=== PATIENT | female | born 1935 | race Caucasian/White ===

== ENCOUNTER 2020-12-31 00:17 | Inpatient (IN) ==
[2020-12-31] MEDS ORDERED: Naloxone 0.4 MG/ML INJ IVP PRN (03:03)
[2020-12-31 05:50] LABS: Hematocrit 28.5 % (35.3-44.9); Hemoglobin 9.4 g/dL (11.5-15.4); Mean Corpuscular Hemoglobin 28.2 pg (28.0-33.3); Mean Corpuscular Volume 85.6 fL (83.0-100.0); Mean Platelet Volume 9.1 fL (9.4-12.4); Platelet Count 250 K/mcL (140-400); Red Blood Count 3.33 M/mcL (3.82-4.97); Red Cell Distribution Width 21.7 % (11.5-14.5); White Blood Count 9.7 K/mcL (4.3-11.1)
[2020-12-31 06:08] LABS: Activated Partial Thrombo Time 46.8 Seconds (26.0-36.0)
[2020-12-31 06:11] LABS: BUN/Creatinine Ratio 24 (6-26); Blood Urea Nitrogen 13 mg/dL (8-23); Calcium 8.4 mg/dL (8.6-10.3); Carbon Dioxide 20 mEq/L (23-29); Chloride 105 mEq/L (98-107); Glucose 137 mg/dL (70-105); Osmolality,Calculated 280 (280-300); Potassium 3.3 mEq/L (3.5-5.1); Prothrombin Time 55.6 Seconds (9.4-12.1); Sodium 134 mEq/L (136-145); eGFR For African Americans > 60 (> 60); eGFR For Non-African Americans > 60 (> 60)
[2020-12-31] MEDS ORDERED: *HR* Phytonadione 5 MG TABLET PO ONE (06:13)
[2020-12-31] MEDS: cefTRIAXone 1,000 MG in 0.9 % Sodium Chloride Mini Bag 100 ML IVPB SCH (08:14)
[2020-12-31] MEDS ORDERED: Potassium Chloride 20 MEQ, Lidocaine 1% 2 ML in 0.9 % Sodium Chloride 250 ML IVPB ONE (08:21)
[2020-12-31 09:33] LABS: Hematocrit 29.3 % (35.3-44.9); Hemoglobin 9.6 g/dL (11.5-15.4)
[2020-12-31] MEDS: Acetaminophen 325 MG TABLET PO PRN (14:01)
[2020-12-31 15:41] LABS: Hematocrit 29.1 % (35.3-44.9); Hemoglobin 9.6 g/dL (11.5-15.4)
[2020-12-31] MEDS: Famotidine 20 MG TABLET PO SCH (19:38)
[2020-12-31] MEDS: Metoprolol XL (24 HR) Succ 50 MG TAB.ER.24H PO SCH (19:38)
[2020-12-31] MEDS: Latanoprost 2.5 ML BOTTLE BOTH EYES SCH (19:39)
[2020-12-31 20:51] LABS: Hemoglobin 9.3 g/dL (11.5-15.4)
[2021-01-01 02:09] LABS: Hematocrit 28.1 % (35.3-44.9); Hemoglobin 9.4 g/dL (11.5-15.4); Mean Corpuscular HGB Conc 33.5 g/dL (31.6-35.5); Mean Corpuscular Hemoglobin 28.4 pg (28.0-33.3); Mean Corpuscular Volume 84.9 fL (83.0-100.0); Platelet Count 278 K/mcL (140-400); Red Blood Count 3.31 M/mcL (3.82-4.97); White Blood Count 9.9 K/mcL (4.3-11.1)
[2021-01-01 02:16] LABS: INR 2.8; Prothrombin Time 31.2 Seconds (9.4-12.1)
[2021-01-01 02:28] LABS: BUN/Creatinine Ratio 27 (6-26); Blood Urea Nitrogen 18 mg/dL (8-23); Calcium 8.2 mg/dL (8.6-10.3); Carbon Dioxide 19 mEq/L (23-29); Chloride 102 mEq/L (98-107); Glucose 194 mg/dL (70-105); Osmolality,Calculated 279 (280-300); Potassium 3.7 mEq/L (3.5-5.1); Sodium 131 mEq/L (136-145); eGFR For African Americans > 60 (> 60); eGFR For Non-African Americans > 60 (> 60)
[2021-01-01] MEDS: cefTRIAXone 1,000 MG in 0.9 % Sodium Chloride Mini Bag 100 ML IVPB SCH (07:59)
[2021-01-01] MEDS: Famotidine 20 MG TABLET PO SCH ×2 (08:00→22:28)
[2021-01-01] MEDS ORDERED: amLODIPine 5 MG TABLET PO SCH (09:00)
[2021-01-01] MEDS ORDERED: Metoprolol XL (24 HR) Succ 50 MG TAB.ER.24H PO SCH (09:00)
[2021-01-01] MEDS: Metoprolol XL (24 HR) Succ 50 MG TAB.ER.24H PO SCH (22:21)
[2021-01-01] MEDS: Latanoprost 2.5 ML BOTTLE BOTH EYES SCH (22:32)
[2021-01-02] MEDS ORDERED: 0.9 % Sodium Chloride 500 ML IVC ONE ×2 (03:49→06:59)
[2021-01-02 04:56] LABS: Hematocrit 24.3 % (35.3-44.9); Mean Corpuscular HGB Conc 31.7 g/dL (31.6-35.5); Mean Corpuscular Hemoglobin 27.6 pg (28.0-33.3); Mean Corpuscular Volume 87.1 fL (83.0-100.0); Mean Platelet Volume 9.5 fL (9.4-12.4); Platelet Count 251 K/mcL (140-400); Red Blood Count 2.79 M/mcL (3.82-4.97); Red Cell Distribution Width 21.8 % (11.5-14.5); White Blood Count 8.2 K/mcL (4.3-11.1)
[2021-01-02 04:57] LABS: Hemoglobin 7.7 g/dL (11.5-15.4)
[2021-01-02 05:11] LABS: Calcium 7.5 mg/dL (8.6-10.3)
[2021-01-02 05:23] LABS: INR 1.7; Prothrombin Time 19.3 Seconds (9.4-12.1)
[2021-01-02] MEDS: Famotidine 20 MG TABLET PO SCH (08:24)
[2021-01-02] MEDS: cefTRIAXone 1,000 MG in 0.9 % Sodium Chloride Mini Bag 100 ML IVPB SCH (09:02)
[2021-01-02 12:33] LABS: Hematocrit 24.9 % (35.3-44.9); Hemoglobin 8.2 g/dL (11.5-15.4)
[2021-01-02 12:52] LABS: Calcium 7.6 mg/dL (8.6-10.3)
[2021-01-02] MEDS: 0.9 % Sodium Chloride 1,000 ML IVC SCH (17:32)
[2021-01-02] MEDS: Metoprolol XL (24 HR) Succ 50 MG TAB.ER.24H PO SCH (20:32)
[2021-01-02] MEDS: Latanoprost 2.5 ML BOTTLE BOTH EYES SCH (20:33)
[2021-01-03 06:28] LABS: Hemoglobin 7.7 g/dL (11.5-15.4); Mean Corpuscular HGB Conc 32.1 g/dL (31.6-35.5); Mean Corpuscular Hemoglobin 27.7 pg (28.0-33.3); Mean Corpuscular Volume 86.3 fL (83.0-100.0); Mean Platelet Volume 8.9 fL (9.4-12.4); Platelet Count 292 K/mcL (140-400); Red Blood Count 2.78 M/mcL (3.82-4.97); Red Cell Distribution Width 21.6 % (11.5-14.5)
[2021-01-03 06:43] LABS: INR 1.7; Prothrombin Time 18.4 Seconds (9.4-12.1)
[2021-01-03 06:47] LABS: Calcium 7.6 mg/dL (8.6-10.3); Potassium 4.3 mEq/L (3.5-5.1)
[2021-01-03] MEDS ORDERED: 0.9 % Sodium Chloride 500 ML IVC ONE (07:51)
[2021-01-03 08:42] LABS: Hematocrit 24.6 % (35.3-44.9)
[2021-01-03] MEDS: Famotidine 20 MG TABLET PO SCH (09:17)
[2021-01-03] MEDS: cefTRIAXone 1,000 MG in 0.9 % Sodium Chloride Mini Bag 100 ML IVPB SCH (09:19)
[2021-01-03] MEDS ORDERED: Trolamine Salicylate/Aloe Vera 85 APPL/85 GM TUBE TP PRN (12:25)
[2021-01-03 15:58] LABS: Hemoglobin 8.6 g/dL (11.5-15.4)
[2021-01-03] MEDS: Metoprolol XL (24 HR) Succ 50 MG TAB.ER.24H PO SCH (19:49)
[2021-01-03] MEDS: Latanoprost 2.5 ML BOTTLE BOTH EYES SCH (23:52)
[2021-01-04] MEDS: 0.9 % Sodium Chloride 1,000 ML IVC SCH (07:32)
[2021-01-04 07:59] LABS: Hematocrit 24.8 % (35.3-44.9); Mean Corpuscular HGB Conc 32.3 g/dL (31.6-35.5); Mean Corpuscular Hemoglobin 27.6 pg (28.0-33.3); Mean Corpuscular Volume 85.5 fL (83.0-100.0); Mean Platelet Volume 9.3 fL (9.4-12.4); Platelet Count 373 K/mcL (140-400); Red Cell Distribution Width 21.4 % (11.5-14.5); White Blood Count 8.3 K/mcL (4.3-11.1)
[2021-01-04] MEDS: cefTRIAXone 1,000 MG in 0.9 % Sodium Chloride Mini Bag 100 ML IVPB SCH (08:09)
[2021-01-04] MEDS: Famotidine 20 MG TABLET PO SCH (08:10)
[2021-01-04] MEDS: amLODIPine 5 MG TABLET PO SCH (08:11)
[2021-01-04] MEDS: Metoprolol XL (24 HR) Succ 50 MG TAB.ER.24H PO SCH ×3 (08:11→20:19)
[2021-01-04 08:17] LABS: Calcium 8.1 mg/dL (8.6-10.3); Potassium 4.1 mEq/L (3.5-5.1)
[2021-01-04] MEDS: Acetaminophen 325 MG TABLET PO PRN ×2 (11:40→19:55)
[2021-01-04 12:15] LABS: Albumin 3.1 g/dL (3.5-5.7); Albumin/Globulin Ratio 0.9 (1.1-2.2); Bilirubin,Direct 0.4 mg/dL (0.0-0.2); Bilirubin,Indirect 0.6 mg/dL (0.0-1.0); Globulin 3.4 g/dL (2.4-3.5); Total Protein 6.5 g/dL (6.4-8.9)
[2021-01-04 12:35] LABS: Bacteria,Urine Few per hpf (None-Few); Bilirubin,Urine Negative (Negative); Blood,Urine Small (Negative); Budding Yeast,Urine Many per hpf (None Seen); Clarity,Urine Clear (Clear); Color,Urine Light-Yellow (Yellow); Glucose,Urine (UA) 100 mg/dL (Normal); Ketones,Urine Trace mg/dL (Negative); Leukocyte Esterase,Urine Trace (Negative); Mucus,Urine Few per lpf (None-Few); Nitrite,Urine Negative (Negative); PH,Urine 5.5 pH Units (5.0-8.0); Protein,Urine 50 mg/dL (Neg-Trace); Specific Gravity,Urine 1.014 (1.010-1.025); Squamous Epithelial Cell,Urine Few per hpf (None-Few); Transitional Epi Cells,Urine Few per hpf (None-Few); Urobilinogen,Urine Normal (Normal)
[2021-01-04 14:13] LABS: Adenovirus Not Detected (Not Detect); Bordetella Pertussis Not Detected (Not Detect); Chlamydophila pneumoniae Not Detected (Not Detect); Coronavirus 229E Not Detected (Not Detect); Coronavirus HKU1 Not Detected (Not Detect); Coronavirus NL63 Not Detected (Not Detect); Coronavirus OC43 Not Detected (Not Detect); Human Metapneumovirus Not Detected (Not Detect); Human Rhinovirus/Enterovirus Not Detected (Not Detect); Influenza A Subtype 2009 H1 Not Detected (Not Detect); Influenza B Not Detected (Not Detect); Mycoplasma pneumoniae Not Detected (Not Detect); Parainfluenza Virus 1 Not Detected (Not Detect); Parainfluenza Virus 2 Not Detected (Not Detect); Parainfluenza Virus 3 Not Detected (Not Detect); Parainfluenza Virus 4 Not Detected (Not Detect); Respiratory Syncytial Virus Not Detected (Not Detect); SARS-CoV-2 Not Detected (Not Detect)
[2021-01-04] MEDS ORDERED: Vancomycin 1,250 MG/262.5 ML IV.SOLN IVPB ONE (16:00)
[2021-01-04] MEDS: Cefepime HCl 2,000 MG in Water for inj. (sterile) 20 ML IVP SCH (17:53)
[2021-01-04] MEDS ORDERED: *HR* LORazepam 2 MG/ML VIAL IVP ONE (21:10)
[2021-01-05] MEDS: Latanoprost 2.5 ML BOTTLE BOTH EYES SCH ×2 (01:17→22:30)
[2021-01-05] MEDS: Cefepime HCl 2,000 MG in Water for inj. (sterile) 20 ML IVP SCH ×2 (06:10→17:54)
[2021-01-05] MEDS ORDERED: Isovue-370 500 ML BOTTLE IVP ONE (08:18)
[2021-01-05 08:29] LABS: Hematocrit 24.8 % (35.3-44.9); Hemoglobin 8.2 g/dL (11.5-15.4); Mean Corpuscular HGB Conc 33.1 g/dL (31.6-35.5); Mean Corpuscular Hemoglobin 28.9 pg (28.0-33.3); Mean Corpuscular Volume 87.3 fL (83.0-100.0); Mean Platelet Volume 9.3 fL (9.4-12.4); Platelet Count 371 K/mcL (140-400); Red Blood Count 2.84 M/mcL (3.82-4.97); Red Cell Distribution Width 22.1 % (11.5-14.5); White Blood Count 8.3 K/mcL (4.3-11.1)
[2021-01-05 08:50] LABS: Calcium 8.4 mg/dL (8.6-10.3); Potassium 3.9 mEq/L (3.5-5.1)
[2021-01-05] MEDS ORDERED: 0.9 % Sodium Chloride 500 ML IVC ONE (09:19)
[2021-01-05] MEDS: Famotidine 20 MG TABLET PO SCH (09:37)
[2021-01-05] MEDS: amLODIPine 5 MG TABLET PO SCH (09:38)
[2021-01-05] MEDS: Metoprolol XL (24 HR) Succ 50 MG TAB.ER.24H PO SCH ×2 (09:39→20:22)
[2021-01-05] MEDS ORDERED: *HR* Dextrose 50 % in Water (Syg) 50 ML SYRINGE IVP PRN (11:24)
[2021-01-05] MEDS ORDERED: D5% in Water 1,000 ML IVC PRN (11:24)
[2021-01-05] MEDS ORDERED: Dextrose Gel 15 GM/37.5 ML TUBE PO PRN ×2 (11:24)
[2021-01-05] MEDS: Insulin LISPRO 300 UNITS/3 ML VIAL SUBQ SCH ×3 (13:06→20:12)
[2021-01-05] MEDS: Acetaminophen 325 MG TABLET PO PRN (14:41)
[2021-01-05] MEDS: 0.9 % Sodium Chloride 500 ML IVC SCH (16:44)
[2021-01-05] MEDS: Vancomycin 1,250 MG/262.5 ML IV.SOLN IVPB ONE ×2 (20:09→22:30)
[2021-01-06] MEDS: Cefepime HCl 2,000 MG in Water for inj. (sterile) 20 ML IVP SCH (05:45)
[2021-01-06 06:34] LABS: Hematocrit 21.6 % (35.3-44.9); Hemoglobin 7.3 g/dL (11.5-15.4); Mean Corpuscular HGB Conc 33.8 g/dL (31.6-35.5); Mean Corpuscular Hemoglobin 29.1 pg (28.0-33.3); Mean Corpuscular Volume 86.1 fL (83.0-100.0); Mean Platelet Volume 9.2 fL (9.4-12.4); Platelet Count 372 K/mcL (140-400); Red Blood Count 2.51 M/mcL (3.82-4.97); Red Cell Distribution Width 21.6 % (11.5-14.5); White Blood Count 7.2 K/mcL (4.3-11.1)
[2021-01-06 06:56] LABS: BUN/Creatinine Ratio 29 (6-26); Blood Urea Nitrogen 25 mg/dL (8-23); Calcium 7.8 mg/dL (8.6-10.3); Carbon Dioxide 20 mEq/L (23-29); Chloride 104 mEq/L (98-107); Glucose 194 mg/dL (70-105); Osmolality,Calculated 284 (280-300); Potassium 3.7 mEq/L (3.5-5.1); Sodium 132 mEq/L (136-145); eGFR For African Americans > 60 (> 60); eGFR For Non-African Americans > 60 (> 60)
[2021-01-06] MEDS: Metoprolol XL (24 HR) Succ 50 MG TAB.ER.24H PO SCH ×2 (08:52→21:14)
[2021-01-06] MEDS: amLODIPine 5 MG TABLET PO SCH (08:52)
[2021-01-06] MEDS: Famotidine 20 MG TABLET PO SCH (08:52)
[2021-01-06] MEDS: Doxycycline 100 MG CAPSULE PO SCH ×2 (08:52→21:14)
[2021-01-06] MEDS: Insulin LISPRO 300 UNITS/3 ML VIAL SUBQ SCH ×4 (08:53→21:15)
[2021-01-06] MEDS ORDERED: Famotidine 20 MG TABLET PO SCH (09:00)
[2021-01-06 11:26] LABS: Adenovirus Not Detected (Not Detect); Bordetella Pertussis Not Detected (Not Detect); Chlamydophila pneumoniae Not Detected (Not Detect); Coronavirus 229E Not Detected (Not Detect); Coronavirus HKU1 Not Detected (Not Detect); Coronavirus NL63 Not Detected (Not Detect); Coronavirus OC43 Not Detected (Not Detect); Human Metapneumovirus Not Detected (Not Detect); Human Rhinovirus/Enterovirus Not Detected (Not Detect); Influenza A Subtype 2009 H1 Not Detected (Not Detect); Influenza B Not Detected (Not Detect); Mycoplasma pneumoniae Not Detected (Not Detect); Parainfluenza Virus 1 Not Detected (Not Detect); Parainfluenza Virus 2 Not Detected (Not Detect); Parainfluenza Virus 3 Not Detected (Not Detect); Parainfluenza Virus 4 Not Detected (Not Detect); Respiratory Syncytial Virus Not Detected (Not Detect); SARS-CoV-2 Not Detected (Not Detect)
[2021-01-06] MEDS ORDERED: levoFLOXacin 750 MG TABLET PO ONE ×2 (14:08→18:03)
[2021-01-06 15:31] LABS: Hematocrit 23.6 % (35.3-44.9); Hemoglobin 7.9 g/dL (11.5-15.4)
[2021-01-06] MEDS ORDERED: Nitroglycerin 0.4 MG TAB.SUBL SL PRN (20:46)
[2021-01-06] MEDS: Latanoprost 2.5 ML BOTTLE BOTH EYES SCH (21:15)
[2021-01-06 21:34] LABS: Hemoglobin 7.7 g/dL (11.5-15.4)
[2021-01-07 05:10] LABS: Hematocrit 23.9 % (35.3-44.9); Hemoglobin 8.1 g/dL (11.5-15.4)
[2021-01-07 05:32] LABS: BUN/Creatinine Ratio 24 (6-26); Blood Urea Nitrogen 18 mg/dL (8-23); Calcium 7.9 mg/dL (8.6-10.3); Carbon Dioxide 19 mEq/L (23-29); Chloride 101 mEq/L (98-107); Glucose 179 mg/dL (70-105); Magnesium 0.9 mg/dL (1.6-2.6); Osmolality,Calculated 278 (280-300); Phosphorous 1.9 mg/dL (2.7-4.5); Potassium 3.3 mEq/L (3.5-5.1); Sodium 131 mEq/L (136-145); eGFR For African Americans > 60 (> 60); eGFR For Non-African Americans > 60 (> 60)
[2021-01-07] MEDS: 0.9 % Sodium Chloride 500 ML IVC SCH ×3 (07:36→10:19)
[2021-01-07] MEDS ORDERED: levoFLOXacin 750 MG TABLET PO SCH (09:00)
[2021-01-07] MEDS: Insulin LISPRO 300 UNITS/3 ML VIAL SUBQ SCH ×4 (10:17→20:16)
[2021-01-07] MEDS: Doxycycline 100 MG CAPSULE PO SCH ×2 (10:19→20:16)
[2021-01-07] MEDS: Famotidine 20 MG TABLET PO SCH (10:19)
[2021-01-07] MEDS: amLODIPine 5 MG TABLET PO SCH (10:19)
[2021-01-07] MEDS: Metoprolol XL (24 HR) Succ 50 MG TAB.ER.24H PO SCH ×2 (10:19→20:16)
[2021-01-07] MEDS: Magnesium Oxide 400 MG TABLET PO SCH ×2 (10:20→20:15)
[2021-01-07] MEDS: Latanoprost 2.5 ML BOTTLE BOTH EYES SCH (20:16)
[2021-01-08 06:34] VITALS: O2SAT 96
[2021-01-08] MEDS ORDERED: levoFLOXacin 750 MG TABLET PO SCH (14:00)
[2021-01-08] MEDS: Insulin LISPRO 300 UNITS/3 ML VIAL SUBQ SCH ×3 (14:13→16:29)
[2021-01-08] MEDS: amLODIPine 5 MG TABLET PO SCH (14:15)
[2021-01-08] MEDS: Famotidine 20 MG TABLET PO SCH (14:15)
[2021-01-08] MEDS: Doxycycline 100 MG CAPSULE PO SCH (14:15)
[2021-01-08] MEDS: Metoprolol XL (24 HR) Succ 50 MG TAB.ER.24H PO SCH (14:16)
[2021-01-08] MEDS: Magnesium Oxide 400 MG TABLET PO SCH (14:16)
[2021-01-08 15:28] LABS: Adenovirus Not Detected (Not Detect); Coronavirus 229E Not Detected (Not Detect); Coronavirus HKU1 Not Detected (Not Detect); Coronavirus NL63 Not Detected (Not Detect); Coronavirus OC43 Not Detected (Not Detect); Human Metapneumovirus Not Detected (Not Detect); SARS-CoV-2 Not Detected (Not Detect)
[2021-01-08 15:29] LABS: Bordetella Pertussis Not Detected (Not Detect); Chlamydophila pneumoniae Not Detected (Not Detect); Human Rhinovirus/Enterovirus Not Detected (Not Detect); Influenza A Subtype 2009 H1 Not Detected (Not Detect); Influenza B Not Detected (Not Detect); Mycoplasma pneumoniae Not Detected (Not Detect); Parainfluenza Virus 1 Not Detected (Not Detect); Parainfluenza Virus 2 Not Detected (Not Detect); Parainfluenza Virus 3 Not Detected (Not Detect); Parainfluenza Virus 4 Not Detected (Not Detect); Respiratory Syncytial Virus Not Detected (Not Detect)
[2021-01-08 15:43] VITALS: BP 155/78; PULSE 87; TEMP 97.6
[2021-01-08 16:08] LABS: BUN/Creatinine Ratio 23 (6-26); Blood Urea Nitrogen 19 mg/dL (8-23); Calcium 7.7 mg/dL (8.6-10.3); Carbon Dioxide 23 mEq/L (23-29); Chloride 99 mEq/L (98-107); Glucose 304 mg/dL (70-105); Magnesium 1.1 mg/dL (1.6-2.6); Osmolality,Calculated 284 (280-300); Potassium 3.9 mEq/L (3.5-5.1); Sodium 130 mEq/L (136-145); eGFR For African Americans > 60 (> 60); eGFR For Non-African Americans > 60 (> 60)
[2021-01-08] MEDS: Acetaminophen 325 MG TABLET PO PRN (16:19)
== END 2021-01-08 19:15 | DRG 604 ==
LOC: 4WAOSI → SUATTDRO 02:07
PROVIDERS: ADMIT Student in an Organized Health Care Education/Training Program; ATTEND Internal Medicine